=== PATIENT | female | born 1950 | race African-American/Black ===

== ENCOUNTER 2023-10-16 10:01 | Outpatient (CLI) | payer MEDICARE, OTHER, MEDICAID ==
[2023-10-16] MEDS ORDERED: Magnevist 469MG/ML 20 ML VIAL ONE (14:45)
== END 2023-10-16 10:02 | disposition home or self-care (01) ==
LOC: CSHMRI 10:01
PROVIDERS: ATTEND Internal Medicine Gastroenterology
DX: R10.13 Epigastric pain (principal); K83.8 Other specified diseases of biliary tract
CPT/HCPCS: 74183; 76377; A9579